=== PATIENT | female | born 1960 ===

== ENCOUNTER 2021-04-04 04:23 | Emergency (ER) | payer OTHER ==
[~2021-04-04] VITALS: Ht 157.5 cm; Wt 93.0 kg
[~2021-04-04 04:23] MED LIST: COZAAR100 MG PO; PLANQUENIL PO; SYNTHROID137 MCG PO
[2021-04-04] MEDS ORDERED: BENADRYL25 MG PO (06:40)
== END 2021-04-04 06:47 | disposition home or self-care (01) ==
LOC: ER 04:23
DX: L29.8 Other pruritus (principal)

== ENCOUNTER 2022-12-16 17:34 | Inpatient (IN) | payer OTHER ==
[~2022-12-16] VITALS: Ht 157.5 cm; Wt 90.7 kg
[~2022-12-16 17:34] MED LIST changes: +BENADRYL25 MG PO
== END 2022-12-26 16:40 | disposition home or self-care (01) | DRG 340 ==
LOC: ER 17:34 → MEDJ 12-17 16:06
PROVIDERS: Surgery; ADMIT Specialist; ATTEND Specialist
PROC: 0WJG4ZZ Inspection of Peritoneal Cavity, Percutaneous Endoscopic Approach (ICD-10-PCS; 2022-12-17)
PROC: 0DTJ0ZZ Resection of Appendix, Open Approach (ICD-10-PCS; principal; 2022-12-17 21:45)
DX: K35.33 Acute appendicitis with perforation, localized peritonitis, and gangrene, with abscess (principal); L93.0 Discoid lupus erythematosus; I10 Essential (primary) hypertension; E03.9 Hypothyroidism, unspecified; B96.20 Unspecified Escherichia coli [E. coli] as the cause of diseases classified elsewhere; B96.5 Pseudomonas (aeruginosa) (mallei) (pseudomallei) as the cause of diseases classified elsewhere; B96.89 Other specified bacterial agents as the cause of diseases classified elsewhere; Z53.31 Laparoscopic surgical procedure converted to open procedure; Z20.822 Contact with and (suspected) exposure to COVID-19